=== PATIENT | male | born 1950 | race Two or more races ===

== ENCOUNTER 2020-04-11 05:41 | Day surgery (SDC) | payer MEDICARE, MEDICAID ==
[2020-04-11] VITALS (8 sets, daily range): BP systolic 132–165; BP diastolic 56–85
[~2020-04-11] VITALS: Ht 161.3 cm; Wt 77.1 kg
[~2020-04-11 05:41] MED LIST: ASPIRIN81 MG ORAL; COREG12.5 MG ORAL; CRESTOR10 M2 ORAL; PLAVIX75 MG ORAL
[2020-04-11] MEDS ORDERED: LR 1000ml 1,000 ML IVLG SCH ×2 (06:17→06:30)
[2020-04-11] MEDS ORDERED: Atropine Inj 1mg/10ml Syr IV PRN (06:30)
[2020-04-11] MEDS ORDERED: DiphenhydrAMINE 50mg/ml Inj IVP PRN (06:30)
[2020-04-11] MEDS ORDERED: fentaNYL 100 mcg/2 mL IV PRN (06:30)
[2020-04-11] MEDS ORDERED: Midazolam 2mg/2ml Inj IVP PRN (06:30)
--- NOTE | 2020-04-11 06:36 | Anethesia Preoperative Eval ---
Anesthesia Pre-op PMH/ROS General Date of Evaluation: Apr 11, 2020 Time of Evaluation: 06:33 Anesthesiologist: smitha ASA Score: ASA 3 Mallampati Score Class I : Soft palate, uvula, fauces, pillars visible Class II: Soft palate, uvula, fauces visible Class III: Soft palate, base of uvula visible Class IV: Only hard plate visible Mallampati Classification: Class II Surgeon: qi Diagnosis: anemia Surgical Procedure: egd/colonoscopy Anesthesia History: none Social History: current smoker Family History: no anesthesia problems Allergies: Coded Allergies: No Known Allergies (Unverified , 04/11/20) Medications: see eMAR Patient NPO?: Yes Past Medical History Cardiovascular: Reports: HTN, CAD, other - hypercholesterolemia, cornary stent x2, Pulmonary: Reports: SHANDA Musculoskeletal/Integumentary: Reports: other - right ankle fracture Anesthesia Pre-op Phys. Exam Physician Exam Last Vital Signs Date Time Temp Pulse Resp B/P (MAP) Pulse Ox O2 Delivery O2 Flow Rate FiO2 04/11/20 06:06 Room Air 04/11/20 06:05 97.4 54 18 139/70 98 Constitutional: NAD Neurologic: CN 2-12 intact Cardiovascular: RRR Respiratory: CTA Gastrointestinal: S/NT/ND Airway Exam Mallampati Score: Class II MO: limited Neck: short TMD: 2fb Anesthesia Pre-op A/P Labs COVID-19 negative Risk Assessment & Plan Assessment: asa3 Plan: mac Status Change Before Surgery: No Pre-Antibiotics Drug: Supriya Cade MD Apr 11, 2020 06:36
[2020-04-11] MEDS ORDERED: LR 1000ml ONE (07:00)
[2020-04-11] MEDS ORDERED: Lidocaine 1% MPF 10mg/ml 5ml ONE (07:00)
--- NOTE | 2020-04-11 07:15 | Pre-Procedure Note/Attestation ---
Pre-Procedure Note/Attestation Complete Prior to Procedure Planned Procedure: not applicable Procedure Narrative: esophagogastroduodenoscopy colon Indications for Procedure Pre-Operative Diagnosis: anemia h/o polyp Attestation I attest that I discussed the nature of the procedure; its benefits; risks and complications; and alternatives (and the risks and benefits of such alternatives ), prior to the procedure, with the patient (or the patient's legal business process representative). I attest that, if there was a reasonable possibility of needing a blood transfusion, the patient (or the patient's legal business process representative) was given the [facility] standardized written summary, pursuant to the [place] Blood Safety Act ([place] Health and Safety Code # 1645, as amended). I attest that I re-evaluated the patient just prior to the surgery and that there has been no change in the patient's H&P, except as documented below: Jolie Gerber MD Apr 11, 2020 07:15
--- NOTE | 2020-04-11 07:15 | Short Stay Surgery H&P ---
History of Present Illness History of Present Illness Chief Complaint see typed H&P HPI Leon Reyna is a 69 year old male who was admitted on for Anemia Patient History Allergies: Coded Allergies: No Known Allergies (Unverified , 04/11/20) Medication History Scheduled Aspirin* (Aspirin*), 81 MG ORAL DAILY, (Reported) Carvedilol (Coreg), 12.5 MG ORAL EVERY 12 HOURS, (Reported) Clopidogrel Bisulfate* (Plavix*), 75 MG ORAL DAILY, (Reported) Rosuvastatin Calcium* (Crestor*), 10 MG ORAL DAILY, (Reported) Physical Exam Vital Signs Last Vital Signs Date Time Temp Pulse Resp B/P (MAP) Pulse Ox O2 Delivery O2 Flow Rate FiO2 04/11/20 06:06 Room Air 04/11/20 06:05 97.4 54 18 139/70 98 Plan Attestation Are the patient's medical conditions optimized for surgery? Jolie Gerber MD Apr 11, 2020 07:15
--- NOTE | 2020-04-11 08:36 | Endoscopy Procedure Note ---
Endoscopy Procedure Note General Indication for Procedure: Anemia, h/o colon polyp Procedures Performed: EGD, colonoscopy Operative Findings/Diagnosis: erosive gastritis, antrum diverticulum (bx duo, antrum), Tics, polyps Specimen: yes Pt Tolerated Procedure Well: Yes Estimated Blood Loss: none Anesthesia Anesthesiologist: Hernando Aleman Anesthesia: MAC Medications Medication Given: see anesthesia record Inserted Devices Implant(s) used?: No Quality Quality of Bowel Preparation: Excellent Did scope reach the cecum?: Yes Was there any complications?: No GI Core Measures 50 yrs or older w/o bx or poly: No 10yrs. F/U recommended: No If not recommended, why?: Above average risk 18 years or older w/prev. colo: Yes <3yrs. since last colonoscopy: No Med reason:<3 yrs.: System Reason:<3 yrs.: Last colonoscopy >= to 3yrs: Yes Jolie Gerber MD Apr 11, 2020 08:36
--- NOTE | 2020-04-11 08:38 | Brief Operative Note ---
Immediate Post Operative Note Operative Note Chief Complaint: anemia, h/o polyp Pre-op Diagnosis: anemia h/o polyp Procedure: EGD/bx, Colon/bx Surgeon: qi Anesthesiologist: lm Aleman Anesthesia: MAC Specimen: yes Complications: none Condition: stable Fluids: per Anesthesia Estimated Blood Loss: none Drains: none Implant(s) used?: No Jolie Gerber MD Apr 11, 2020 08:38
--- NOTE | 2020-04-11 09:21 | Immediate Post-Op Evaluation ---
Immediate Post-Op Evalulation Immediate Post-Op Evalulation Procedure: egd/colonoscopy w Date of Evaluation: Apr 11, 2020 Time of Evaluation: 08:47 IV Fluids: 700ml lr Blood Products: none Estimated Blood Loss: negligible Blood Pressure Systolic: 163 Blood Pressure Diastolic: 85 Pulse Rate: 56 Respiratory Rate: 18 O2 Sat by Pulse Oximetry: 100 Temperature (Fahrenheit): 97.3 Pain Score (1-10): 0 Nausea: No Vomiting: No Complications none Patient Status: awake, reacts, patent Hydration Status: adequate Drug: Supriya aCde MD Apr 11, 2020 09:21
--- NOTE | 2020-04-11 09:22 | 48 Hour Post Anesthesia Eval ---
Post Anesthesia Evaluation Procedure: egd/colonoscopy w/ bx Date of Evaluation: Apr 11, 2020 Time of Evaluation: 08:49 Blood Pressure Systolic: 159 0: 74 Pulse Rate: 55 Respiratory Rate: 18 Temperature (Fahrenheit): 97.3 O2 Sat by Pulse Oximetry: 100 Airway: patent Nausea: No Vomiting: No Pain Intensity: 0 Hydration Status: adequate Cardiopulmonary Status: stable Mental Status/LOC: patient returned to baseline Post-Anesthesia Complications: none Follow-up care needed: N/A Supriya Wray MD Apr 11, 2020 09:22
--- NOTE | 2020-04-11 12:00 | Operative Note - Dictated ---
DATE OF OPERATION: 04/11/2020 GASTROENTEROLOGY PROCEDURE REPORT PROCEDURE: Upper gastrointestinal endoscopy with biopsy as well as colonoscopy with biopsy. SURGEON: Jolie Gerber MD. ANESTHESIA: Dr. Olsen. PRE-ENDOSCOPIC DIAGNOSES: 1. Mild anemia. 2. History of colonic polyps. POST-ENDOSCOPIC DIAGNOSES: 1. Incidental 1 cm gastric antrum diverticulum. 2. Status post random biopsies of normal duodenum and normal antrum mucosa. 3. Moderate to severe sigmoid and left-sided diverticulosis and mild right-sided diverticulosis. 4. Diminutive polyp in the cecum, status post biopsy, removal. 5. Diminutive polyp in the ascending colon, status post biopsy, removal. 6. Diminutive polyp in the hepatic flexure, status biopsy removal. 7. Diminutive polyp at 40 cm in the descending colon, status post biopsy, removal. 8. Polypoid lesion versus possibly inverted diverticulum at 30 cm in the sigmoid colon, status post careful biopsy as described below. 9. Two diminutive polyps in the sigmoid colon at 30 cm, status post biopsy. DESCRIPTION OF PROCEDURE: The procedure, its risks, indications, alternatives, and possible complications including but not limited to bleeding, infection, perforation, , and anesthesia complications were explained to the patient and informed consent was obtained. The diagnostic upper endoscope was introduced into oropharynx and advanced to the duodenum without difficulty. The endoscope was then gradually withdrawn and mucosa examined carefully. There was a 1 cm incidental antrum diverticulum seen. There were no ulcers or other lesions. Random biopsies of the duodenum and antrum were sent to the Pathology for review. The endoscope was removed. The rectal exam was done and the colonoscope was introduced into the rectum and advanced to cecum. The cecum was identified by the appearance of ileocecal valve and the appendiceal orifice. The colonoscope was then gradually withdrawn and the mucosa examined carefully. The examination of the colonic mucosa revealed diminutive polyps as described above in the cecum, ascending colon, hepatic flexure, descending colon at 40 cm in colon and 30 cm, which were removed with the biopsy forceps. There was significant sigmoid diverticulosis and tortuosity of the colon in this area. There was one polypoid erythematous lesion, which was floppy and appeared to be likely inverted diverticulum, although it did not invaginate in a way that diverticulum typically would. However, due to its suspicious appearance, it was not removed, but instead carefully biopsied superficially to rule out adenomatous change. Retroflexed view of the rectum was unremarkable. The colonoscope was removed and the patient was sent to Recovery in good condition. COMPLICATIONS: None. ASSESSMENT: This examination was notable for the findings as listed above. Biopsies will be evaluated and the patient will be counseled accordingly. Should the polypoid versus inverted diverticulum tissue show adenomatous change, then the patient will require another colonoscopy at a later date for complete excision. The patient will be advised to maintain a high-fiber diet and follow up as an outpatient. RECOMMENDATIONS: 1. Resume oral diet. 2. Follow up biopsy results. 3. Outpatient followup. 4. High-fiber diet. Jolie Gerber M.D. DR: CHRISSY JOB#: [id number] CC: ALEAH
== END 2020-04-11 10:00 | disposition home or self-care (01) ==
LOC: GAS 05:41
DX: D64.9 Anemia, unspecified (principal); K57.30 Diverticulosis of large intestine without perforation or abscess without bleeding; K63.5 Polyp of colon; Z86.010 Personal history of colon polyps; D12.0 Benign neoplasm of cecum
CPT/HCPCS: 43239; 45380; 94003; J0360; J2704; J7120; 94150